=== PATIENT | male | born 1995 | race Caucasian/White ===

== ENCOUNTER 2018-08-16 12:21 | Outpatient (REF) | payer MEDICAID, SELFPAY ==
[2018-08-16 13:55] LABS: TSH (W/Ref FT4) 2.25 uIU/mL (0.358-3.74)
[2018-08-18 00:05] LABS: Vitamin D 25 Total 9.2 ng/ml (30-100)
== END 2018-08-16 12:41 ==
LOC: NCHCN 12:21
PROVIDERS: PCP Pediatrics; Visit Provider Nurse Practitioner
DX: Z13.21 Encounter for screening for nutritional disorder (principal); Z13.29 Encounter for screening for other suspected endocrine disorder; R69 Illness, unspecified
CPT/HCPCS: 82306; 84443

== ENCOUNTER 2018-12-27 12:04 | Outpatient (REF) | payer SELFPAY ==
[2018-12-28 05:23] LABS: Vitamin D 25 Total 11.7 ng/ml (30-100)
== END 2018-12-27 12:24 ==
LOC: NCHCN 12:04
PROVIDERS: PCP Nurse Practitioner; Visit Provider Nurse Practitioner
DX: E55.9 Vitamin D deficiency, unspecified (principal)
CPT/HCPCS: 82306

== ENCOUNTER 2024-07-25 11:14 | Emergency (ER) | payer BC, SELFPAY ==
[2024-07-25 11:20] VITALS: BP 140/89; PULSE 79; RESP 16; TEMP 36.8; O2SAT 97
[2024-07-25 11:34] VITALS: BP 140/89; PULSE 79; RESP 16; TEMP 36.8; O2SAT 97
--- NOTE | 2024-07-25 11:39 | ED.GENADUL_ITS ---
Discharge Plan Disposition Patient Disposition: Home Discharge Details Clinical Impression: COVID-19 Primary Care Provider: Unknown,Unknown ED Provider: Antonia Willis Home Meds and New Rx's Prescriptions: No Action Zyrtec 10 MG capsule 1 cap PO DAILY Qty: 90 Discharge Instructions Additional Instructions: Your physical exam today was reassuring. You may return to work tomorrow without restrictions Please follow-up with your primary care provider if you have any questions or concerns. Return to emergency care if you develop new chest pain, difficulty breathing, feel like you are going to pass out, or if you are very worried and need to be rechecked again immediately. Stand Alone Forms: Work Release HPI General Date/Time Provider Initiated Documentation: 07/25/24 11:15 . HPI Narrative: Krishan is a 29year old male who presents to the emergency department today for evaluation of COVID-19, would like a return to work note. He reports that he started feeling little bit under the weather 6 days ago with mild sore throat, congestion, and mild headache. Symptoms progressed the next morning, he took a COVID test at home and it was positive. He reports symptoms included mild cough. Symptoms have all improved since onset, he has been taking NyQuil to help him sleep at night but otherwise has not needed any medication. He denies fever/chills, dizziness, difficulty swallowing, chest pain, difficulty breathing/wheezing, nausea/vomiting, abdominal pain, change in bowel or bladder function. No known ill contacts. No significant past medical history; although he does report that he has allergies. He has PCP at [facility]. Physical exam reassuring. Krishan is alert and oriented, no acute distress. Clear voice. Easy work of breathing, lung sounds clear bilaterally. Normal heart sounds. History and presentation consistent with COVID-19 infection that is recovering well. Based on CDC guidelines, patient is cleared to return to work. No red flags concerning for pneumonia, dehydration, or other complications of COVID-19 infection requiring diagnostic imaging or labs. Vital signs all reassuring. Work note provided for patient. Reviewed discharge instructions with patient, including symptomatic management and red flags indicating need for return to emergency care Related Data Home Medications ?Medication ?Instructions ?Recorded ?Confirmed cetirizine 10 mg capsule (Zyrtec) 1 cap PO DAILY #90 caps 11/19/14 07/25/24 Allergies Allergy/AdvReac Type Severity Reaction Status Date / Time shrimp Allergy Intermediate Hives Unverified 07/25/24 11:26 walnut Allergy Itching Unverified 07/25/24 11:26 General Stated Complaint: GenMedical ADDI: 5 Review of Systems Narrative: see HPI Exam Const General: cooperative, healthy appearing, comfortable, no acute distress, well developed and well groomed Nutritional Appearance: average body habitus Orientation: alert and oriented x3 HENMT Mouth: no muffled voice Resp Effort & Inspection: normal respiratory effort and able to speak in complete sentences Auscultation: clear to auscultation bilaterally Other: No cough during exam Cardio Rate: regular rate Rhythm: regular rhythm Neuro General: patient alert, patient oriented x3 and tone normal Cognition: normal cognition Speech: speech normal Course Vital Signs Vital signs: Vital Signs Temperature 36.8 C 07/25/24 11:20 Pulse 79 07/25/24 11:20 Respiratory Rate 16 07/25/24 11:20 Blood Pressure 140/89 07/25/24 11:20 Pulse Oximetry 97 07/25/24 11:20 Temperature 36.8 C 07/25/24 11:34 Temperature Source Temporal Artery Scan 07/25/24 11:34 Pulse 79 07/25/24 11:34 Respiratory Rate 16 07/25/24 11:34 Respiratory Effort Normal, Non-Labored 07/25/24 11:25 Blood Pressure 140/89 07/25/24 11:34 Blood Pressure Position Supine 07/25/24 11:34 Pulse Oximetry 97 07/25/24 11:34 Oxygen Delivery Method Room Air 07/25/24 11:34 Oxygen Flow Rate 0 07/25/24 11:34 Pain Level 0 07/25/24 11:34 Medical Decision Making Quality:SDOH Health Related Social Needs: 2 No Data to Display PFSH All Active Problems (Updated 07/25/24 @ 11:32 by Antonia Connors) COVID-19 (Acute) Family History Mother No problems noted. Father No problems noted. Sister No problems noted. Brother Jose Alberto's syndrome 1/3 brother with jose alberto syndrome. + tetrology of fallot and pulmonary atresia Social History Smoking/Tobacco Use Status: Never Smoking risk assessment performed?: Yes Alcohol Intake: current Drug use: Never Substance use type: does not use Do you feel safe in your relationship?: Yes
[2024-07-25 11:43] VITALS: RESP 16
== END 2024-07-25 11:46 | disposition home or self-care (01) ==
LOC: ER 11:51
PROVIDERS: Emergency Provider Nurse Practitioner Family; PCP Nurse Practitioner Family
DX: U07.1 COVID-19 (principal)
CPT/HCPCS: 99281; 99282